=== PATIENT | female | born 1950 | race Native Hawaiian/Other Pacific Islander ===

== ENCOUNTER 2020-11-28 16:19 | Outpatient (CLI) | payer OTHER | END 2020-11-28 19:21 | disposition home or self-care (01) | LOC: LAB 16:19 | PROVIDERS: ATTEND Family Medicine | DX: R30.0 Dysuria (principal) | CPT/HCPCS: 81000; 87086; 87088 ==

== ENCOUNTER 2021-01-29 17:57 | Outpatient (CLI) | payer OTHER ==
[2021-01-29 18:13] LABS: POTASSIUM 4.1 mmol/L (3.6-5.2)
[2021-01-29 18:14] LABS: PLATELET COUNT 328 K/uL (152-353)
== END 2021-01-29 19:26 | disposition home or self-care (01) ==
LOC: LAB 17:57
PROVIDERS: ATTEND Family Medicine
DX: R79.0 Abnormal level of blood mineral (principal); A41.9 Sepsis, unspecified organism
CPT/HCPCS: 80053; 83735; 85027